=== PATIENT | male | born 1955 | race Two or more races ===

== ENCOUNTER 2018-12-25 22:36 | Inpatient (IN) | payer OTHER ==
[~2018-12-25] VITALS: Ht 167.6 cm; Wt 86.2 kg
[2018-12-26 03:00] VITALS: BP_SYST 129; BP_DIAS 65; BP_DIAS 69
--- NOTE | 2018-12-26 03:00 | NUR ---
ETL BI DEVELOPERUNDERGRADUATE INTERN NOTES RECEIVED DIRECT ADMIT FROM [facility],THIS 63 Y.O. MALE,,ALERT,ORIENTED X4,WITH CHIEF COMPLAINTS OF INCREASED BODY TEMPERATURE AND SLIGHT SHORTNESS OF BREATH PRIOR TO ADMISSION.WITH SALINE LOCK FROM [place] ON LEFT AC #20.NO SKIN ISSUES.AMBULATORY.BREATH SOUNDS CLEAR ON BOTH LOWER LUNG FIELD.NO FEVER UPON ARRIVAL ON THE UNIT,WITH ORAL TEMPERATURE OF 98.5.WITH HISTORY OF DM,HTN,GALLSTONE AND PROSTATE PROBLEM.DENIES PAIN AT THE MOMENT.PLACE COMFORTABLY ON BED,CALL LIGHT IN REACH,NEEDS ANTICIPATED.
--- NOTE | 2018-12-26 03:30 | NUR ---
PLANT OPERATOR HELPER NOTES MRSA SWAB DONE,SENT TO LAB
[2018-12-26 04:00] VITALS: BP 125/69
[2018-12-26] MEDS ORDERED: GABA-532 PO (04:10)
[2018-12-26] MEDS ORDERED: METF-442 PO (04:10)
[2018-12-26] MEDS ORDERED: LISI10TA5 PO (04:10)
[2018-12-26] MEDS ORDERED: DOCU-141 PO (04:10)
[2018-12-26] MEDS ORDERED: ATOR40TA PO (04:10)
[2018-12-26] MEDS: IV 1/2NS 1000 ML 1,000 ML IV PRN (05:18)
[2018-12-26] MEDS ORDERED: ZOLPIDEM TARTRATE 5 MG TABLET PO PRN (05:30)
[2018-12-26] MEDS ORDERED: Z GUARD REMEDY 2 OZ OINT TP PRN (05:30)
[2018-12-26] MEDS ORDERED: ONDANSETRON HCL/PF 4 MG/2 ML VIAL IVP PRN (05:30)
[2018-12-26] MEDS ORDERED: MAG HYDROX/AL HYDROX/SIMETH 30 ML UDC PO PRN (05:30)
[2018-12-26] MEDS ORDERED: HYDROCODONE/APAP 5/325MG 1 EACH TABLET PO PRN (05:30)
[2018-12-26] MEDS ORDERED: MAGNESIUM HYDROXIDE 30 ML UDC PO PRN (05:30)
[2018-12-26] MEDS ORDERED: LEVOFLOXACIN 500 MG /D5W 100ML 100 ML IV ONE (06:00)
[2018-12-26] MEDS ORDERED: LEVOFLOXACIN 500 MG /D5W 100ML 500 MG in PREMIX 1 EA IV ONE (06:00)
--- NOTE | 2018-12-26 06:38 | NUR ---
ICT PROGRAMMER NOTES SRSR-73 ON TELE MONITOR.DENIES CHEST PAIN,NO SOB.AFEBRILE 98.5.STARTED ON LEVAQUIN 500MG IV ORDERED.BLOOD SUGAR CHECK 152,NO ORDER FOR SLIDING SCALE.WILL ENDORSE TO DAY NURSE FOR ALEJANDRO.
[2018-12-26 06:57] LABS: BASOPHILS % (AUTO) 0.3 % (0.0-2.0); EOSINOPHILS % (AUTO) 0.1 % (0.0-6.0); HEMATOCRIT 39 % (39-51); HEMOGLOBIN 12.9 g/dL (13.5-17.5); LYMPHOCYTES # (AUTO) 2.1 /CMM (0.8-4.8); MEAN CORPUSCULAR HGB CONC 34 g/dl (31.0-36.0); MEAN CORPUSCULAR VOLUME 94 fL (80-96); MONOCYTES # (AUTO) 2.3 /CMM (0.1-1.30); MONOCYTES % (AUTO) 14.7 % (2.0-12.0); NEUTROPHILS # (AUTO) 10.8 /CMM (1.8-8.9); NEUTROPHILS % (AUTO) 70.9 % (43.0-81.0); PLATELET COUNT (AUTO) 194 /CMM (150-450); RED BLOOD CELL COUNT(AUTO) 4.11 MIL/uL (4.5-6.0); WHITE BLOOD COUNT (AUTO) 15.3 K/uL (4.3-11.0)
[2018-12-26 07:09] LABS: BILIRUBIN,TOTAL 1.3 mg/dL (0.2-1.0); CALCIUM, SERUM 8.2 mg/dL (8.5-10.1); CREATININE 0.9 mg/dL (0.6-1.3); POTASSIUM 3.8 mmol/L (3.5-5.1); TOTAL PROTEIN, SERUM 6.9 g/dL (6.4-8.2)
--- NOTE | 2018-12-26 07:10 | NUR ---
JOURNEYMAN MILLWRIGHT NOTES PATIENT IN BED ALERT ORIENTED X 3. NO ACUTE DISTRESS NOTED. BREATHING UNLABORED. NO SOB NOTED. IV ACCESS PATENT AND INTACT, NO REDNESS OR SWELLING NOTED. SAFETY MEASURES IN PLACE. WILL CONTINUE TO MONITOR ACCORDINGLY.
[2018-12-26 08:00] VITALS: BP 172/85
[2018-12-26] MEDS ORDERED: ACET-868 PO (08:50)
--- NOTE | 2018-12-26 09:30 | NUR ---
TITLE ATTORNEY NOTES FOLLOWED UP WITH DR MICK DUKE REGARDING MEDICATION RECONCILIATION NEEDS TO BE DONE. SAID OK HE WILL DO IT.
[2018-12-26] MEDS: ACETAMINOPHEN 325 MG TABLET PO PRN ×2 (10:34→16:50)
[2018-12-26 16:00] VITALS: BP 173/87
[2018-12-26] MEDS ORDERED: VANCOMYCIN 1 GM in IV D5W 250 ML IV ONE (17:00)
[2018-12-26] MEDS: METFORMIN 500 MG TABLET PO SCH (17:00)
--- NOTE | 2018-12-26 17:00 | NUR ---
MS RN NOTES MD AWARE OF ELEVATED TEMPERATURE, TYLENOL GIVEN, COOLING MEASURES DONE. WILL CONTINUE TO MONITOR PATIENT.
[2018-12-26] MEDS ORDERED: FEE PK DOSING 1 MIN EA MC ONE (17:01)
--- NOTE | 2018-12-26 18:35 | NUR ---
PATIENT NOTED TO HAVE ELEVATED BLOOD PRESSURE, DR MICK DUKE MADE AWARE WITH ORDERS FOR HYDRALAZINE 25 MG PO Q4H PRN FOR SBP>165, NOTED AND CARRIED OUT.
[2018-12-26] MEDS ORDERED: hydrALAZINE HCL 25 MG TABLET PO PRN (19:00)
--- NOTE | 2018-12-26 19:00 | NUR ---
MS RN NOTES PATIENT IN BED ALERT ORIENTED X 3. NO ACUTE DISTRESS NOTED. BREATHING UNLABORED. NO SOB NOTED. IV ACCESS PATENT AND INTACT, NO REDNESS OR SWELLING NOTED. DUE MEDICATIONS GIVEN , NO ASE NOTED. NEEDS ATTENDED AND ANTICIPATED. SAFETY MEASURES IN PLACE. VANCOMYCIN IV SCHEDULED FOR 1800 NOT AVAILABLE ON THE FLOOR YET, CALL PHARMACIST RADHA TO FOLLOW UP SAID IT WILL BE DELIVERED SOON POSSIBLE. ENDORSED TO NIGHT NURSE FOR CONTINUITY OF CARE AND ADMINISTRATION OF VANCOMYCIN IV.
--- NOTE | 2018-12-26 19:40 | NUR ---
MS RN NOTE: PATIENT RESTING IN BED, NO ACUTE DISTRESS NOTED. BREATHING EVEN AND UNLABORED, NO SOB NOTED. IV TO LAC IN PLACE, INFUSING 1/2NS AT 75ML/HR. PATIENT BLOOD PRESSURE STABLE AT 113/58 AFTER GIVEN HYDRALAZINE ORAL 25MG AROUND 184. BED LOCKED AND IN LOWEST POSITION, CALL LIGHT IN REACH. WILL CONTINUE TO MONITOR.
[2018-12-26 19:59] LABS: APPEARANCE,URINE CLEAR (CLEAR); BILIRUBIN,URINE NEGATIVE (NEGATIVE); BLOOD, URINE 1+ Ery/uL (NEGATIVE); COLOR,URINE DARK YELLO (YELLOW); KETONES,URINE 2+ (NEGATIVE); LEUKOCYTE ESTERASE ,URINE NEGATIVE (NEGATIVE); NITRITE, URINE NEGATIVE (NEGATIVE); PH,URINE 7.5 (5.0-8.0); PROTEIN,URINE 2+ mg/dl (NEGATIVE); UGLUCOSE NEGATIVE (NEGATIVE)
[2018-12-26 20:00] VITALS: BP 113/58
[2018-12-26] MEDS: VANCOMYCIN 1.25 GM in IV D5W 500 ML IV SCH (20:17)
[2018-12-26 20:19] LABS: BACTERIA,URINE None seen /HPF (None Seen); MUCUS,URINE Rare /LPF (None Seen); SQUAMOUS EPITHELIAL CELL,UR Few /HPF (None Seen); WBC,URINE 0-2 /HPF (0-3)
--- NOTE | 2018-12-26 20:35 | NUR ---
Met with patient and family at bedside. He speaks Kiswahili only, he is alert and pleasant. He lives at home with his , daughter and grandkids in [place]. States he is ambulatory and independent with adl's. Denies use of DME and no homehealth. Has big family who are supportive. Plan to dc home, family will provide ride when discharge. Addendum: 12/26/18 at 2035 by MACKENZIE GAMBLE RN Amended: Links added.
[2018-12-26] MEDS ORDERED: GABAPENTIN 100 MG CAPSULE PO SCH (22:00)
--- NOTE | 2018-12-26 23:00 | NUR ---
MS RN NOTE: PATIENT IV LEAKING TO LAC. NEW IV STARTED TO RFA #22 WITH GOOD BLOOD RETURN. IV TO LAC REMOVED, COVERED WITH GAUZE, PRESSURE APPLIED AND SECURED WITH TAPE. WILL CONTINUE TO MONITOR.
[2018-12-27] MEDS: IV 1/2NS 1000 ML 1,000 ML IV PRN (01:37)
[2018-12-27] MEDS: ACETAMINOPHEN 325 MG TABLET PO PRN (05:33)
[2018-12-27] MEDS ORDERED: LEVOFLOXACIN 750 MG /D5W 150ML 750 MG in PREMIX 1 EA IV SCH (06:00)
[2018-12-27] MEDS ORDERED: LEVOFLOXACIN 500 MG /D5W 100ML 500 MG in PREMIX 1 EA IV SCH (06:00)
--- NOTE | 2018-12-27 06:05 | NUR ---
MS RN NOTE: PATIENT RESTING IN BED, NO ACUTE DISTRESS NOTED. BREATHING EVEN AND UNLABORED, NO SOB NOTED. IV TO RFA IN PLACE, INFUSING 1/2NS AT 75ML/HR. BED LOCKED AND IN LOWEST POSITION, CALL LIGHT IN REACH. WILL ENDORSE TO DAY NURSE TO CONTINUE WITH PLAN OF CARE.
--- NOTE | 2018-12-27 07:05 | NUR ---
MS RN NOTES PATIENT IN BED ALERT ORIENTED X 3. NO ACUTE DISTRESS NOTED. BREATHING UNLABORED. NO SOB NOTED. IV ACCESS PATENT AND INTACT, NO REDNESS OR SWELLING NOTED. SAFETY MEASURES IN PLACE. WILL CONTINUE TO MONITOR ACCORDINGLY.
[2018-12-27 07:14] LABS: BASOPHILS % (AUTO) 0.3 % (0.0-2.0); EOSINOPHILS % (AUTO) 0.2 % (0.0-6.0); HEMATOCRIT 40 % (39-51); HEMOGLOBIN 13.4 g/dL (13.5-17.5); LYMPHOCYTES # (AUTO) 1.6 /CMM (0.8-4.8); LYMPHOCYTES % (AUTO) 13.5 % (20.0-44.0); MEAN CORPUSCULAR HGB CONC 34 g/dl (31.0-36.0); MEAN CORPUSCULAR VOLUME 93 fL (80-96); MONOCYTES # (AUTO) 1.5 /CMM (0.1-1.30); MONOCYTES % (AUTO) 12.4 % (2.0-12.0); NEUTROPHILS # (AUTO) 8.6 /CMM (1.8-8.9); NEUTROPHILS % (AUTO) 73.6 % (43.0-81.0); PLATELET COUNT (AUTO) 183 /CMM (150-450); RED BLOOD CELL COUNT(AUTO) 4.29 MIL/uL (4.5-6.0); WHITE BLOOD COUNT (AUTO) 11.7 K/uL (4.3-11.0)
[2018-12-27 07:27] LABS: CALCIUM, SERUM 8.1 mg/dL (8.5-10.1); CREATININE 0.8 mg/dL (0.6-1.3); MAGNESIUM 1.9 mg/dL (1.8-2.4); PHOSPHORUS 2.6 mg/dL (2.5-4.9); POTASSIUM 3.6 mmol/L (3.5-5.1)
[2018-12-27] MEDS: VANCOMYCIN 1.25 GM in IV D5W 500 ML IV SCH (07:31)
[2018-12-27 07:42] LABS: THYROID STIMULATING HORMONE 1.051 uIU/mL (0.358-3.74)
[2018-12-27 08:00] VITALS: BP 127/77
[2018-12-27] MEDS: METFORMIN 500 MG TABLET PO SCH ×2 (08:16→17:00)
[2018-12-27] MEDS ORDERED: LISINOPRIL (10MG) 10 MG TABLET PO SCH (09:00)
[2018-12-27] MEDS ORDERED: ATORVASTATIN 40 MG TABLET PO SCH (09:00)
[2018-12-27] MEDS ORDERED: LEVO500T75 PO (14:35)
[2018-12-27 16:00] VITALS: BP 127/71
[2018-12-27] MEDS ORDERED: LACTOBACILLUS RHAMNOSUS GG 1 EACH CAP.SPRINK PO SCH (17:00)
--- NOTE | 2018-12-27 17:30 | NUR ---
MS FREIGHT RECEIVER NOTES PATIENT DISCHARGE HOME WITH DAUGHTER NAYLA WITH STABLE VITAL SIGNS. NO ACUTE DISTRESS NOTED. BREATHING UNLABORED. NO SOB NOTED. IV ACCESS REMOVED, NO REDNESS, NO SWELLING NOTED, NO BLEEDING NOTED. DISCHARGE INSTRUCTIONS INCLUDING FOLLOW UP WITH PRIMARY DOCTOR AND NEW PRESCRIPTION GIVEN TO THE PATIENT AND DAUGHTER NAYLA AT BEDSIDE, VERBALIZED UNDERSTANDING . ALL BELONGINGS ACCOUNTED FOR. NEEDS ATTENDED AND ANTICIPATED. ASSISTED TO THE LOBBY, PICKED UP VIA PRIVATE CAR IN STABLE CONDITION.
== END 2018-12-27 18:00 | disposition home or self-care (01) | DRG 723 ==
LOC: TELE 12-26 02:53 → MED 12-26 09:23
PROVIDERS: ADMIT Nurse Practitioner Acute Care; ATTEND Nurse Practitioner Acute Care
DX: B34.9 Viral infection, unspecified (principal); E11.9 Type 2 diabetes mellitus without complications; I10 Essential (primary) hypertension; N40.0 Benign prostatic hyperplasia without lower urinary tract symptoms; Z88.0 Allergy status to penicillin; K80.20 Calculus of gallbladder without cholecystitis without obstruction
CPT/HCPCS: 36415; 71045-TC; 76705-TC; 80048-TC; 80053-TC; 80061-TC; 81000-TC; 82962-TC; 83735-TC; 84100-TC; 84443-TC; 85025-TC; 87040-TC; 87081-TC; 87400; A4216; G0378; J1956; J3370; J3490; J7060

== ENCOUNTER 2018-12-31 17:12 | Inpatient (IN) | payer OTHER ==
[~2018-12-31] VITALS: Ht 165.1 cm; Wt 87.1 kg
[~2018-12-31 17:12] MED LIST: ACET-868 PO; ATOR40TA PO; DOCU-141 PO; GABA-532 PO; LEVO500T75 PO; LISI10TA5 PO; METF-442 PO
--- NOTE | 2018-12-31 17:20 | NUR ---
BIB family c/o RUQ abdominal pain radiates to r shoulder since yesterday, was seen at [facility] and Dx with Cholelithiasis, confirmed by US. Patient a/ox4, bolivian speaking, Breathing even and unlabored, no sob noted. Patient placed on the monitor.
[2018-12-31 17:51] LABS: BASOPHILS # (AUTO) 0.1 /CMM (0.0-0.2); BASOPHILS % (AUTO) 0.5 % (0.0-2.0); EOSINOPHILS % (AUTO) 1.5 % (0.0-6.0); HEMATOCRIT 41 % (39-51); HEMOGLOBIN 13.8 g/dL (13.5-17.5); LYMPHOCYTES # (AUTO) 1.7 /CMM (0.8-4.8); LYMPHOCYTES % (AUTO) 10.4 % (20.0-44.0); MEAN CORPUSCULAR HGB CONC 33 g/dl (31.0-36.0); MEAN CORPUSCULAR VOLUME 93 fL (80-96); MONOCYTES # (AUTO) 1.9 /CMM (0.1-1.30); MONOCYTES % (AUTO) 11.8 % (2.0-12.0); NEUTROPHILS # (AUTO) 12.1 /CMM (1.8-8.9); NEUTROPHILS % (AUTO) 75.8 % (43.0-81.0); PLATELET COUNT (AUTO) 333 /CMM (150-450); RED BLOOD CELL COUNT(AUTO) 4.46 MIL/uL (4.5-6.0)
[2018-12-31 17:57] LABS: CALCIUM, SERUM 9.6 mg/dL (8.5-10.1); CREATININE 0.8 mg/dL (0.6-1.3); POTASSIUM 3.8 mmol/L (3.5-5.1)
[2018-12-31 18:03] LABS: ALBUMIN 3.4 g/dL (3.4-5.0); BILIRUBIN,DIRECT 0.2 mg/dL (0.0-0.2); BILIRUBIN,TOTAL 0.9 mg/dL (0.2-1.0); TOTAL PROTEIN, SERUM 8.4 g/dL (6.4-8.2)
[2018-12-31] MEDS ORDERED: ONDANSETRON HCL/PF 4 MG/2 ML VIAL ONE (18:56)
[2018-12-31] MEDS ORDERED: MORPHINE SULFATE INJ 2 MG/ML DISP.SYRIN ONE (18:56)
[2018-12-31] MEDS ORDERED: METRONIDAZOLE 500MG/ NS 100ML 100 ML IV ONE (19:00)
[2018-12-31] MEDS ORDERED: IV NS 0.9% 1,000 ML BAG IV ONE ×2 (19:00→20:30)
[2018-12-31] MEDS ORDERED: LEVOFLOXACIN 750 MG /D5W 150ML 150 ML IV ONE (19:00)
[2018-12-31] MEDS ORDERED: MORPHINE SULFATE INJ 2 MG/ML DISP.SYRIN IV ONE (19:00)
[2018-12-31] MEDS ORDERED: ONDANSETRON HCL/PF 4 MG/2 ML VIAL IVP ONE (19:00)
--- NOTE | 2018-12-31 19:05 | NUR ---
Patient c/o abdominal pain, morphine and zofran given. NS started, and tolerating well.
[2018-12-31] MEDS ORDERED: TAMS-12 PO (19:15)
--- NOTE | 2018-12-31 19:46 | NUR ---
CALLED NURSING SUP FOR TELE BED
--- NOTE | 2018-12-31 19:51 | NUR ---
Endorsed to ED for liz.
[2018-12-31] MEDS ORDERED: MAGNESIUM HYDROXIDE 30 ML UDC PO PRN (20:00)
[2018-12-31] MEDS ORDERED: ACETAMINOPHEN 325 MG TABLET PO PRN (20:00)
[2018-12-31] MEDS ORDERED: ZOLPIDEM TARTRATE 5 MG TABLET PO PRN (20:00)
[2018-12-31] MEDS ORDERED: Z GUARD REMEDY 2 OZ OINT TP PRN (20:00)
--- NOTE | 2018-12-31 20:11 | NUR ---
325-1 [facility]
--- NOTE | 2018-12-31 20:15 | NUR ---
REPORT CALLED TO M/S YAMEL EDWARDS.
[2018-12-31 20:53] VITALS: BP 121/67
--- NOTE | 2018-12-31 20:53 | NUR ---
admission note patient arrived to unit from er. admitted to [facility] for cholecystitis. new orders from admitting dr. maldonado already entered. patient in no apparent distress. ambulatory reports pain in abd rated 2/10 to ruq. poc reviewed with kelvin toledo assisting with icelandic interpretation. patient denied need to have professional science manager. oriented to room. bed down locked sr x2 will cont to monitor.
[2018-12-31 20:55] VITALS: BP 121/67
[2018-12-31] MEDS: IV NS 0.9% 1,000 ML IV SCH (22:27)
[2018-12-31] MEDS: GABAPENTIN 100 MG CAPSULE PO SCH (22:45)
--- NOTE | 2018-12-31 23:26 | NUR ---
ns missed dose ns bolus missed dose because ordered in er by er doctor. new admission orders from [facility] already entered and will be followed.
[2019-01-01] MEDS ORDERED: METRONIDAZOLE 500MG/ NS 100ML 100 ML IV ONE ×2 (00:15→05:33)
--- NOTE | 2019-01-01 00:15 | NUR ---
duplicate flagyl missed dose duplicate order for flagyl missed dose. original order maked as administered.
[2019-01-01] MEDS: METRONIDAZOLE 500MG/ NS 100ML 500 MG in PREMIX 1 EA IV SCH ×5 (00:50→23:49)
--- NOTE | 2019-01-01 05:39 | NUR ---
duplicate flagyl missed dose duplicate order for flagyl missed dose. original order to be administered.
[2019-01-01] MEDS: HYDROCODONE/APAP 5/325MG 1 EACH TABLET PO PRN ×3 (06:39→16:41)
[2019-01-01] MEDS: BLOOD SUGAR DIAGNOSTIC 1 EACH STRIP IN SCH ×4 (06:40→17:13)
--- NOTE | 2019-01-01 06:50 | NUR ---
pain, hida scan scheduled. dr maldonado called patient scheduled for hida scan and morphine is contraindicated prior to test. ordered extra norco to be give for breakthough pain if the first norco does not resolve pain satisfactory.
--- NOTE | 2019-01-01 07:28 | NUR ---
norco one time patient requesting norco one time dose states pain is 6/10 to abd. administered as ordered
[2019-01-01] MEDS ORDERED: HYDROCODONE/APAP 5/325MG 1 EACH TABLET PO ONE (07:30)
[2019-01-01 07:45] LABS: BASOPHILS % (AUTO) 0.2 % (0.0-2.0); EOSINOPHILS % (AUTO) 0.4 % (0.0-6.0); HEMATOCRIT 39 % (39-51); HEMOGLOBIN 13.1 g/dL (13.5-17.5); LYMPHOCYTES # (AUTO) 1.5 /CMM (0.8-4.8); MEAN CORPUSCULAR HGB CONC 34 g/dl (31.0-36.0); MEAN CORPUSCULAR VOLUME 93 fL (80-96); MONOCYTES # (AUTO) 1.7 /CMM (0.1-1.30); MONOCYTES % (AUTO) 10.2 % (2.0-12.0); NEUTROPHILS # (AUTO) 13.6 /CMM (1.8-8.9); NEUTROPHILS % (AUTO) 80.2 % (43.0-81.0); PLATELET COUNT (AUTO) 298 /CMM (150-450); RED BLOOD CELL COUNT(AUTO) 4.21 MIL/uL (4.5-6.0)
[2019-01-01] MEDS: IV NS 0.9% 1,000 ML IV SCH ×2 (07:53→16:16)
--- NOTE | 2019-01-01 07:54 | NUR ---
RN MS OPENING NOTES Patient received on room air, no sob noted. patient states no pain at this time, patient is scheduled for a NM hepato biliary scan today. No questions or concerns coming from the patient toward his procedure. Consent signed and awaiting for transport. Bed at the lowest setting, call light within reach.
[2019-01-01 07:58] LABS: CALCIUM, SERUM 8.8 mg/dL (8.5-10.1); CREATININE 0.7 mg/dL (0.6-1.3); MAGNESIUM 1.8 mg/dL (1.8-2.4); PHOSPHORUS 2.2 mg/dL (2.5-4.9); POTASSIUM 4.2 mmol/L (3.5-5.1)
[2019-01-01 08:00] VITALS: BP 130/80
[2019-01-01] MEDS: LISINOPRIL (5MG) 5 MG TABLET PO SCH (08:50)
[2019-01-01] MEDS: METFORMIN 500 MG TABLET PO SCH ×2 (08:50→16:41)
[2019-01-01] MEDS: DOCUSATE SODIUM 100 MG CAPSULE PO SCH ×2 (08:50→16:41)
[2019-01-01] MEDS: NICOTINE PATCH (7MG) 7 MG PATCH.TD24 TD SCH (08:50)
[2019-01-01] MEDS: ATORVASTATIN 40 MG TABLET PO SCH (08:50)
[2019-01-01] MEDS ORDERED: PNEUMOCOCCAL 23-VAL P-SAC VAC 0.5 ML VIAL SQ ONE (10:00)
[2019-01-01] MEDS ORDERED: K PHOS NEUTRAL 250 MG TABLET PO ONE (15:00)
[2019-01-01 16:00] VITALS: BP 143/81
[2019-01-01] MEDS ORDERED: DEXTROSE 50%-WATER 50 ML DISP.SYRIN IV PRN (16:30)
[2019-01-01] MEDS: TAMSULOSIN 0.4 MG CAP.SR.24H PO SCH (17:20)
[2019-01-01] MEDS: MORPHINE SULFATE INJ 2 MG/ML DISP.SYRIN IV PRN ×2 (18:04→23:47)
--- NOTE | 2019-01-01 18:27 | NUR ---
Readmitted less than 7days c/o abd pain. He speaks Upper Sorbian only, he is alert and pleasant. He lives at home with his , daughter and grandkids in [place]. States he is ambulatory and independent with adl's. Denies use of DME and no homehealth. Has big family who are supportive. Plan to dc home, family will provide ride when discharge. Addendum: 01/01/19 at 1828 by MACKENZIE GAMBLE RN Amended: Links added.
--- NOTE | 2019-01-01 18:35 | NUR ---
RN MS CLOSING NOTES Patient remains on room air, no sob noted. A/O x4 Grenadian speaking only. Right AC 20 gauge, NS@100mL/hour. patient denies pain at this time. Patient lying down comfortably on bed, bed at the lowest setting, call light within reach. Will give report to NOC RN bedside.
--- NOTE | 2019-01-01 19:05 | NUR ---
RN MS OPENING NOTES RECEIVED PATIENT IN BED AWAKE ALERT AND ORIENTED X4, TELUGU SPEAKING, RESPIRATIONS EVEN AND UNLABORED WITH EQUAL RISE AND FALL OF CHEST, STATES HE HAS "LITTLE PAIN AT THIS TIME 10/05", HOWEVER DOES NOT WANT PAIN MEDICATION AT THIS TIME, MADE AWARE IF UNBEARABLE PAIN MEDICATION IF AVAILABLE, VERBALIZES HE UNDERSTANDS, PER AM SHIFT REPORT DR. LANTIGUA AT BEDSIDE AT CHANGE OF SHIFT WHOM SCHEDULED PT FOR PROCEDURE LAPRASCOPIC CHOLECYSTECTOMY AND TO OBTAIN CONSENTS, WILL FOLLOW UP WITH CONSENTS, PATIENT MADE AWARE OF MD'S PLAN OF CARE AND VERBALIZES HE UNDERSTANDS. URINAL AT BEDSIDE AND WITHIN REACH, NOTED URINE NATALIIA IN COLOR ,NO SEDIMENTS, LEFT AC #22 G INTACT AND PATENT, NO REDNESS, NO INFILTRATION PRESENT, IVF RUNNING ORDERED, NPO STATUS PATIENT AWARE, ORIENTED TO STAFF AND CALL LIGHT AND KEPT WITHIN REACH, SAFETY PRECAUTIONS IN PLACE, LOW BED AND LOCKED, ALL NEEDS ATTENDED WILL CONTINUE TO MONITOR THROUGHOUT SHIFT. Addendum: 01/02/19 at 0517 by DAVE CARNES RN clarification iv site left ac #18
[2019-01-01 20:00] VITALS: BP 128/73
--- NOTE | 2019-01-01 20:00 | NUR ---
YAMEL MS NOTES CONSENTS OBTAINED FOR PROCEDURE,PROVIDED IN COMORAN AND EXPLAINED IN COMORAN, RECEIVED CALL FROM MARKO BALLESTEROS, PATIENT SCHEDULED FOR 7AM 01/02/19. PATIENT MADE AWARE.
[2019-01-01] MEDS: LEVOFLOXACIN 500 MG /D5W 100ML 500 MG in PREMIX 1 EA IV SCH (20:25)
[2019-01-01] MEDS: GABAPENTIN 100 MG CAPSULE PO SCH (21:20)
--- NOTE | 2019-01-01 23:47 | NUR ---
RN MS NOTES PT COMPLAINT OF PAIN 9/10 TO RIGHT SIDE ABD, ACHING REQUESTING FOR PAIN MEDICATION MORPHINE OFFERED AGREED. PRN MORPHINE GIVEN ORDERED, VS WNL, WILL CONTINUE TO MONITOR FOR EFFECTIVENESS.
[2019-01-02] VITALS (9 sets, daily range): BP systolic 106–127; BP diastolic 64–88
[2019-01-02] MEDS: BLOOD SUGAR DIAGNOSTIC 1 EACH STRIP IN SCH ×5 (00:02→23:30)
[2019-01-02] MEDS: INSULIN REGULAR, HUMAN 100 UNIT/ML 3 ML VIAL SQ PRN ×4 (00:02→17:25)
[2019-01-02] MEDS: IV NS 0.9% 1,000 ML IV SCH ×4 (02:13→21:35)
[2019-01-02] MEDS: METRONIDAZOLE 500MG/ NS 100ML 500 MG in PREMIX 1 EA IV SCH ×3 (05:06→21:58)
[2019-01-02] MEDS: MORPHINE SULFATE INJ 2 MG/ML DISP.SYRIN IV PRN (05:13)
--- NOTE | 2019-01-02 05:13 | NUR ---
RN MS NOTES PATIENT COMPLAINT OF PAIN TO RIGHT SIDE ABD ,9/10 NOTED WITH FACIAL GRIMACING AND MOANS, PAIN MEDICATION OFFERED, PT AGREED VS WNL 127/77,119,19,98.0,97%RA. PRN MORPHINE GIVEN ORDERED WILL CONTINUE TO MONITOR FOR EFFECTIVENESS. ACCUCHECK 129 NPO STATUS FOR SURGERY. NO INSULIN GIVEN
[2019-01-02] MEDS ORDERED: LIDOCAINE HCL/PF 1% 30 ML SDV ONE (06:32)
[2019-01-02] MEDS ORDERED: BUPIVACAINE MPF 0.5% W/EPI INJ 30 ML VIAL ONE (06:32)
[2019-01-02] MEDS ORDERED: ANESTHESIA TRAY IN PYXIS 1 EA TRAY MC ONE (06:32)
--- NOTE | 2019-01-02 06:45 | NUR ---
RN MS CLOSING NOTES PATIENT IN BED AWAKE ALERT AND ORIENTED X4, PAKISTANI SPEAKING, RESPIRATIONS EVEN AND UNLABORED WITH EQUAL RISE AND FALL OF CHEST, PT LEFT THE UNIT IN STABLE CONDITION FOR PROCEDURE LAPRASCOPIC CHOLECYSTECTOMY CONSENTS IN CHART CHECKLIST DONE, URINAL AT BEDSIDE AND WITHIN REACH, NOTED URINE NATALIIA IN COLOR ,NO SEDIMENTS, LEFT AC #18 G INTACT AND PATENT, NO REDNESS, NO INFILTRATION PRESENT, IVF RUNNING ORDERED, NPO STATUS PATIENT AWARE, CALL LIGHT KEPT WITHIN REACH THROUGHOUT SHIFT, SAFETY PRECAUTIONS IN PLACE, LOW BED AND LOCKED, ALL NEEDS WERE ATTENDED WILL ENDORSE TO NEXT SHIFT, CALLED AND MADE SURGERY DEPARTMENT STAFF [id number] GAVE MORPHINE PRN AT 0512 FOR PAIN, AND WRITTEN ON CHECKLIST FOR PAIN OF 04/07. PER STAFF WILL INFORM NURSE OR STAFF.
[2019-01-02] MEDS ORDERED: FENTANYL PF 100MCG/2ML AMPUL ONE (06:48)
[2019-01-02] MEDS ORDERED: MIDAZOLAM HCL 2 MG/2ML VIAL ONE (06:48)
--- NOTE | 2019-01-02 09:20 | NUR ---
m/s senior c web developer: notes received pt from recovery with dx: s/p lap catalino with dami drain on right abdomen with band-aid to abdomen incision. pt appears to be drowsy, arousable. vss, afebrile. family at bedside. will continue to monitor. Addendum: 01/02/19 at 1914 by BREEZY HERRMANNN correction on above procedure: s/p laparoscopy with a conversion to open exploratory and cholecystectomy with dami drain in place.
--- NOTE | 2019-01-02 09:30 | NUR ---
m/s leather piece inspector: notes iv fluids increase to 150ml/hr as ordered. will continue to monitor.
[2019-01-02] MEDS ORDERED: ACETAMINOPHEN 325 MG TABLET PO ONE (11:00)
[2019-01-02] MEDS ORDERED: GABAPENTIN 300 MG CAPSULE PO ONE (11:00)
[2019-01-02] MEDS ORDERED: IBUPROFEN 400 MG TABLET PO ONE (11:00)
[2019-01-02] MEDS: LISINOPRIL (5MG) 5 MG TABLET PO SCH (11:00)
--- NOTE | 2019-01-02 11:00 | NUR ---
m/s sql report writer: notes pt resting comfortable. blood pressure 111/86 and wants to hold b/p med at this time. family remains at bedside. will continue to monitor.
[2019-01-02] MEDS: NICOTINE PATCH (7MG) 7 MG PATCH.TD24 TD SCH (11:01)
[2019-01-02] MEDS: DOCUSATE SODIUM 100 MG CAPSULE PO SCH ×2 (11:02→17:24)
[2019-01-02] MEDS: ATORVASTATIN 40 MG TABLET PO SCH (11:02)
[2019-01-02] MEDS: METFORMIN 500 MG TABLET PO SCH ×2 (11:02→17:24)
[2019-01-02 11:19] LABS: BASOPHILS % (AUTO) 0.1 % (0.0-2.0); EOSINOPHILS % (AUTO) 0.1 % (0.0-6.0); HEMATOCRIT 37 % (39-51); HEMOGLOBIN 12.3 g/dL (13.5-17.5); LYMPHOCYTES # (AUTO) 0.7 /CMM (0.8-4.8); LYMPHOCYTES % (AUTO) 3.6 % (20.0-44.0); MEAN CORPUSCULAR HGB CONC 34 g/dl (31.0-36.0); MEAN CORPUSCULAR VOLUME 93 fL (80-96); MONOCYTES # (AUTO) 0.9 /CMM (0.1-1.30); MONOCYTES % (AUTO) 4.3 % (2.0-12.0); NEUTROPHILS # (AUTO) 18.3 /CMM (1.8-8.9); NEUTROPHILS % (AUTO) 91.9 % (43.0-81.0); PLATELET COUNT (AUTO) 329 /CMM (150-450); RED BLOOD CELL COUNT(AUTO) 3.97 MIL/uL (4.5-6.0); WHITE BLOOD COUNT (AUTO) 19.9 K/uL (4.3-11.0)
[2019-01-02 11:40] LABS: ALBUMIN 2.5 g/dL (3.4-5.0); BILIRUBIN,TOTAL 1.5 mg/dL (0.2-1.0); CALCIUM, SERUM 8.1 mg/dL (8.5-10.1); CREATININE 0.9 mg/dL (0.6-1.3); MAGNESIUM 1.8 mg/dL (1.8-2.4); PHOSPHORUS 2.8 mg/dL (2.5-4.9); POTASSIUM 4.4 mmol/L (3.5-5.1)
--- NOTE | 2019-01-02 12:09 | NUR ---
m/s lift truck mechanic: notes iv fluids of ns at 150ml infusing well. family remains at bedside. will continue to monitor.
--- NOTE | 2019-01-02 14:00 | NUR ---
m/s inspector canned food reconditioning: notes pt resting comfortable. dami drained with 40ml of sanguineous output. pt tolerated clear liquid diet. family remains at bedside. will continue to monitor.
[2019-01-02] MEDS: MAG HYDROX/AL HYDROX/SIMETH 30 ML UDC PO PRN (15:47)
--- NOTE | 2019-01-02 16:00 | NUR ---
m/s ground worker: notes resting comfortable in bed. family remains at bedside. will continue to monitor.
[2019-01-02] MEDS ORDERED: FAMOTIDINE/PF INJ 20 MG/2 ML VIAL IV SCH (17:00)
[2019-01-02] MEDS: TAMSULOSIN 0.4 MG CAP.SR.24H PO SCH (17:24)
--- NOTE | 2019-01-02 18:10 | NUR ---
m/s family and consumer science professor: notes dami drained with 30ml of sanguineous output. pt tolerated clear liquid. no c/o n/v or any discomfort. family remains at bedside. iv fluids of normal saline at 150ml/hr still infusing well. instructed to call for assistance. will continue to monitor.
--- NOTE | 2019-01-02 19:10 | NUR ---
m/s isotope technologist: notes report given to juaquin (marly) for continuity of care.
--- NOTE | 2019-01-02 19:20 | NUR ---
MSRN FULLY AWAKE, FAMILY AT BEDSIDE. PATIENT STATES STILL FEELING ACIDIC ON HIS STOMACH. JUST HAD MAALOX FEW HOURS AGO, PER DAUGHTER DID NOT HELP. NO N/V. HAVE HOB ON [place]. ABD DRESSING D/I. NORY DRAIN EMPTY FOR NOW. PLACE CALL TO DR LANTIGUA.
--- NOTE | 2019-01-02 19:35 | NUR ---
MSRN SPOKE TO DR. LANTIGUA, ORDERS RECEIVED. CARRIED OUT.
--- NOTE | 2019-01-02 19:45 | NUR ---
MSRN EXPLAINED TO PATIENT AND FAMILY MEDICATION REGIMEN AND PLAN OF CARE, WELL UNDERSTOOD.
[2019-01-02] MEDS: LEVOFLOXACIN 500 MG /D5W 100ML 500 MG in PREMIX 1 EA IV SCH (20:26)
[2019-01-02] MEDS: FAMOTIDINE (20 MG) 20 MG TABLET PO SCH (21:41)
[2019-01-02] MEDS: GABAPENTIN 100 MG CAPSULE PO SCH (21:41)
--- NOTE | 2019-01-02 22:00 | NUR ---
MSRN 10 CC FROM NORY OBTAINED. DUE MEDS ADMINISTERED.
[2019-01-02] MEDS: HYDROMORPHONE 1 MG/1 ML DISP.SYRIN IV PRN (22:15)
--- NOTE | 2019-01-02 22:15 | NUR ---
MSRN VERBALIZES POST OP PAIN, DILAUDED 1MG IVP ADMINISTERED.
--- NOTE | 2019-01-03 | NUR ---
MSRN BS MONITORED, 167. COVERAGE NOT GIVEN DID NOT WANT SNACKS EARLIER. PRESENT IVF INFUSING WELL AT 150 CC/HR.
[2019-01-03] MEDS: SUCRALFATE 1 G TABLET PO SCH ×5 (00:06→23:58)
--- NOTE | 2019-01-03 02:28 | NUR ---
MSRN 15 CC OBTAINED FROM NORY MCKENZIE.
[2019-01-03] MEDS: METRONIDAZOLE 500MG/ NS 100ML 500 MG in PREMIX 1 EA IV SCH ×3 (05:57→20:27)
[2019-01-03] MEDS: IV NS 0.9% 1,000 ML IV SCH ×3 (05:58→20:48)
[2019-01-03] MEDS: HYDROCODONE/APAP 5/325MG 1 EACH TABLET PO PRN ×3 (06:44→21:53)
[2019-01-03] MEDS: BLOOD SUGAR DIAGNOSTIC 1 EACH STRIP IN SCH ×4 (06:44→21:49)
--- NOTE | 2019-01-03 06:45 | NUR ---
MSRN BS 128. NO COVERAGE. BRP VOIDED FREELY. IVF CONTINUED.
--- NOTE | 2019-01-03 07:20 | NUR ---
MS RN OPENING NOTES RECEIVED PT RESTING IN BED, AWAKE, A/O X4. LIBERIAN SPEAKING, ABLE TO UNDERSTAD A LITTLE TELUGU. TOLERATING RA, WITH NO ACUTE RESPIRATORY DISTRESS NOTED. PT DENIES PAIN. PT ALSO DENIES ANY CONCERNS AND QUESTIONS AT THIS MOMENT. IVF NS AT 150ML/HR TO LAC G18, INTACT AND FLUID INFUSING WELL. PT KEPT COMFORTABLE IN BED. CALL LIGHT AND FLUID WITHIN REACH. PT'S BED IN LOWEST, LOCKED POSITION WITH SR X3. WILL CONTINUE PLAN OF CARE.
[2019-01-03 08:45] VITALS: BP 118/71
[2019-01-03] MEDS: PANTOPRAZOLE 40 MG/PACK PACK PO SCH (09:01)
[2019-01-03] MEDS: DOCUSATE SODIUM 100 MG CAPSULE PO SCH ×2 (09:02→16:34)
[2019-01-03] MEDS: METFORMIN 500 MG TABLET PO SCH ×2 (09:03→16:35)
[2019-01-03] MEDS: ATORVASTATIN 40 MG TABLET PO SCH (09:03)
[2019-01-03] MEDS: NICOTINE PATCH (7MG) 7 MG PATCH.TD24 TD SCH (09:03)
[2019-01-03] MEDS: LISINOPRIL (5MG) 5 MG TABLET PO SCH (09:03)
[2019-01-03 09:42] LABS: BASOPHILS % (AUTO) 0.2 % (0.0-2.0); EOSINOPHILS % (AUTO) 0.3 % (0.0-6.0); HEMATOCRIT 36 % (39-51); HEMOGLOBIN 11.8 g/dL (13.5-17.5); LYMPHOCYTES # (AUTO) 2.2 /CMM (0.8-4.8); LYMPHOCYTES % (AUTO) 13.3 % (20.0-44.0); MEAN CORPUSCULAR HGB CONC 33 g/dl (31.0-36.0); MEAN CORPUSCULAR VOLUME 93 fL (80-96); MONOCYTES # (AUTO) 0.9 /CMM (0.1-1.30); MONOCYTES % (AUTO) 5.4 % (2.0-12.0); NEUTROPHILS # (AUTO) 13.4 /CMM (1.8-8.9); NEUTROPHILS % (AUTO) 80.8 % (43.0-81.0); PLATELET COUNT (AUTO) 376 /CMM (150-450); RED BLOOD CELL COUNT(AUTO) 3.83 MIL/uL (4.5-6.0); WHITE BLOOD COUNT (AUTO) 16.6 K/uL (4.3-11.0)
[2019-01-03 10:01] LABS: ALBUMIN 2.4 g/dL (3.4-5.0); BILIRUBIN,TOTAL 0.8 mg/dL (0.2-1.0); CALCIUM, SERUM 8.4 mg/dL (8.5-10.1); CREATININE 0.7 mg/dL (0.6-1.3); MAGNESIUM 2.1 mg/dL (1.8-2.4); POTASSIUM 4.3 mmol/L (3.5-5.1)
[2019-01-03] MEDS: HYDROMORPHONE 1 MG/1 ML DISP.SYRIN IV PRN ×2 (10:05→20:12)
--- NOTE | 2019-01-03 10:19 | NUR ---
RN NOTES PT'S NORY DRAIN EMPTIED, RESULTED 30ML. WITH YELLOWISH RED FLUID NOTED. WILL CONTINUE TO MONITOR.
[2019-01-03] MEDS: NEUTRA PHOS 1 POWD.PACKET PO SCH ×2 (11:13→16:34)
[2019-01-03] MEDS: INSULIN REGULAR, HUMAN 100 UNIT/ML 3 ML VIAL SQ PRN ×3 (11:53→22:01)
--- NOTE | 2019-01-03 14:30 | NUR ---
RN NOTES PT'S NORY DRAIN EMPTIED, RESULTED 25ML; WITH YELLOWISH RED FLUID NOTED. WILL CONTINUE TO MONITOR.
--- NOTE | 2019-01-03 14:30 | NUR ---
YAMEL NOTES PT'S NORY DRAIN EMPTIED, RESULTED 25ML. REMAINS WITH YELLOWISH-RED FLUID NOTED. WILL CONTINUE TO MONITOR. Addendum: 01/03/19 at 1823 by GARRETT JACOBS RN RESULTED 35ML. NOT 25ML. Addendum: 01/03/19 at 1825 by GARRETT JACOBS RN DUPLICATE DOCUMENTATION. 1430 = NORY EMPTIED, RESULTED 25ML.
[2019-01-03 16:00] VITALS: BP 68/137
[2019-01-03] MEDS: TAMSULOSIN 0.4 MG CAP.SR.24H PO SCH (17:02)
[2019-01-03] MEDS: MAG HYDROX/AL HYDROX/SIMETH 30 ML UDC PO PRN (18:13)
--- NOTE | 2019-01-03 18:19 | NUR ---
RN NOTES PT COMPLAINED OF FEELING BLOATED AND REQUESTED MEDICINE TO HELP PASS GAS. MAALOX GIVEN PRN ORDERED. PT STATED HE HAD A BOWEL MOVEMENT TODAT AROUND 1PM. AND PASSES GAS LITTLE BY LITTLE FROM TIME TO TIME. PT LSO STATED HE HAD MAALOX LAST NIGHT AND IT HELP HIM. FAMILY AT BEDSIDE WILL CONNTINUE TO MONITOR.
--- NOTE | 2019-01-03 18:20 | NUR ---
RN NOTES NORY DRAIN EMPTIED AT 1814, RESULTED 35ML; WITH SAME COLOR OF FLUID. WILL CONTINUE TO MONITOR.
--- NOTE | 2019-01-03 18:54 | NUR ---
MS RN CLOSING NOTES PT REMAINS RESTING IN BED, AWAKE, A/O X4. INDONESIAN SPEAKING, ABLE TO UNDERSTAD A LITTLE SLOVENIAN. TOLERATING RA, WITH NO ACUTE RESPIRATORY DISTRESS NOTED. PT STATED IN PAIN, JUST HAD [facility]CO PAIN MEDICINE PRN AND MAALOX, STATED EFFECTIVE A LITTLE BIT. IVF NS AT 150ML/HR TO LAC G18, INTACT AND FLUID INFUSING WELL. NORY DRAIN PRESENT TO RIGHT SIDE OF ABDOMEN, DRAINING WITH YELLOWISH RED FLUID. ALL NEEDS AND CARE PROVIDED. PT KEPT COMFORTABLE IN BED. CALL LIGHT AND FLUID WITHIN REACH. PT'S BED IN LOWEST, LOCKED POSITION WITH SR X3. WILL ENDORSE TO NIGHT NURSE FOR ALEJANDRO.
[2019-01-03 20:00] VITALS: BP 145/84
[2019-01-03] MEDS: ONDANSETRON HCL/PF 4 MG/2 ML VIAL IVP PRN (20:11)
[2019-01-03] MEDS ORDERED: LEVOFLOXACIN 500 MG /D5W 100ML 100 ML IV ONE (20:46)
[2019-01-03] MEDS: LEVOFLOXACIN 500 MG /D5W 100ML 500 MG in PREMIX 1 EA IV SCH (20:48)
[2019-01-03] MEDS: GABAPENTIN 100 MG CAPSULE PO SCH (21:50)
[2019-01-03] MEDS: FAMOTIDINE (20 MG) 20 MG TABLET PO SCH (21:50)
[2019-01-04] MEDS: HYDROMORPHONE 1 MG/1 ML DISP.SYRIN IV PRN ×5 (00:03→15:47)
[2019-01-04] MEDS: ONDANSETRON HCL/PF 4 MG/2 ML VIAL IVP PRN (04:53)
[2019-01-04] MEDS: METRONIDAZOLE 500MG/ NS 100ML 500 MG in PREMIX 1 EA IV SCH ×3 (05:40→21:46)
[2019-01-04] MEDS: IV NS 0.9% 1,000 ML IV SCH ×2 (05:40→11:23)
[2019-01-04] MEDS: SUCRALFATE 1 G TABLET PO SCH ×4 (05:41→23:04)
--- NOTE | 2019-01-04 06:00 | NUR ---
pt continue to have right abdominal pain s./p open catalino with dami, medicated with dilaudid, norco with good relief, vomited 250 cc total in 2 occasion despite zofran was given, stomach still bloated ,distended, encouraged ambulation today,. pt stated he pass little gas no bm overnight, offered prune juice if nausea subsided.total dami output 130cc serosang.will continue to monitor. vss,afebrile.
[2019-01-04 06:18] LABS: BASOPHILS % (AUTO) 0.2 % (0.0-2.0); EOSINOPHILS % (AUTO) 1.9 % (0.0-6.0); HEMATOCRIT 37 % (39-51); HEMOGLOBIN 12.3 g/dL (13.5-17.5); LYMPHOCYTES # (AUTO) 1.5 /CMM (0.8-4.8); MEAN CORPUSCULAR HGB CONC 34 g/dl (31.0-36.0); MEAN CORPUSCULAR VOLUME 93 fL (80-96); MONOCYTES # (AUTO) 0.8 /CMM (0.1-1.30); MONOCYTES % (AUTO) 7.3 % (2.0-12.0); NEUTROPHILS # (AUTO) 8.2 /CMM (1.8-8.9); NEUTROPHILS % (AUTO) 76.6 % (43.0-81.0); PLATELET COUNT (AUTO) 454 /CMM (150-450); RED BLOOD CELL COUNT(AUTO) 3.96 MIL/uL (4.5-6.0); WHITE BLOOD COUNT (AUTO) 10.7 K/uL (4.3-11.0)
[2019-01-04] MEDS: BLOOD SUGAR DIAGNOSTIC 1 EACH STRIP IN SCH ×3 (06:28→16:40)
[2019-01-04 06:41] LABS: ALBUMIN 2.4 g/dL (3.4-5.0); BILIRUBIN,TOTAL 0.6 mg/dL (0.2-1.0); CALCIUM, SERUM 8.2 mg/dL (8.5-10.1); CREATININE 0.6 mg/dL (0.6-1.3); MAGNESIUM 1.8 mg/dL (1.8-2.4); POTASSIUM 3.6 mmol/L (3.5-5.1); TOTAL PROTEIN, SERUM 6.7 g/dL (6.4-8.2)
[2019-01-04] MEDS: INSULIN REGULAR, HUMAN 100 UNIT/ML 3 ML VIAL SQ PRN ×2 (06:47→18:26)
[2019-01-04 08:00] VITALS: BP 146/95
--- NOTE | 2019-01-04 08:00 | NUR ---
RN NOTES PATIENT HAS A OPEN LAB CHOLECYSTECTOMY DRESSING INTACT, AND NORY DRAINAGE. RIGHT SIDE OF ABDOMEN DISTENDED, AND HARD TO TOUCH. PATIENT REFUSED EAT BREAKFAST BECAUSE NAUSEATED. PATIENT AMBULATORY USING BATHROOM, ENCOURAGED TO INCREASE FLUID INTACT.
[2019-01-04] MEDS: PANTOPRAZOLE 40 MG/PACK PACK PO SCH (08:05)
[2019-01-04] MEDS: METFORMIN 500 MG TABLET PO SCH ×2 (08:05→16:40)
[2019-01-04] MEDS: NICOTINE PATCH (7MG) 7 MG PATCH.TD24 TD SCH (08:06)
[2019-01-04] MEDS: NEUTRA PHOS 1 POWD.PACKET PO SCH (08:06)
[2019-01-04] MEDS: DOCUSATE SODIUM 100 MG CAPSULE PO SCH ×2 (08:06→16:40)
[2019-01-04] MEDS: ATORVASTATIN 40 MG TABLET PO SCH (08:06)
[2019-01-04] MEDS: LISINOPRIL (5MG) 5 MG TABLET PO SCH (08:07)
--- NOTE | 2019-01-04 08:07 | NUR ---
RN NOTES RECEIVED PATIENT STANDING NEXT TO THE BED. PATIENT WAS COMPLAINING OF PAIN RIGHT UPPER ABDOMEN, 05/07. ADMINISTERED DILAUDID 1 MG/ML IV PUSH PER PATIENT REQUEST, V/S TAKEN BP 146/95, P-89, ALSO ADMINISTERED SCHEDULED MEDICATION. EMPTIED NORY -35 ML. INFUSING NS AT 160 ML/HR ON RIGHT AC AREA INTACT, PATIENT PASSING GAS, ACTIVE BOWEL MOVEMENT IN FOUR QUADRANTS OF ABDOMEN. ENCOURAGED PATIENT TO AMBULATE.NEEDS ATTENDED AND ANTICIPATED. CALL LIGHT WITHIN TO REACH. CONTINUED MONITORING.
--- NOTE | 2019-01-04 09:19 | NUR ---
RN NOTES MEDICATION WERE ADMINISTERED FOR PAIN EFFECTIVE, ALSO PATIENT VOMIT X1 250 ML. PATIENT RESTING IN THE BED. CONTINUED MONITORING.
--- NOTE | 2019-01-04 13:01 | NUR ---
RN NOTES ADMINISTERED DILAUDID 1 MG/ML IV PUSH FOR PAIN RIGHT UPPER ABDOMEN, AND ZOFRAN 4 MG/ML IV PUSH, ALSO ADMINISTERED SCHEDULED MEDICATION, EMPTIED NORY -90 ML, V/S TAKEN BP-167/96, P-92. CONTINUED MONITORING. FAMILY NEXT TO THE BED.
--- NOTE | 2019-01-04 14:00 | NUR ---
RN NOTES PATIENT WALKING IN THE HALLWAY, STABLE, NO DIZZINESS, REFUSED PAIN AFTER PAIN MEDICATION. SAFETY PRECAUTION MAINTAINED ALL THE TIME.
--- NOTE | 2019-01-04 15:47 | NUR ---
RN NOTES ADMINISTERED DILAUDID 1 MG IV PUSH FOR PAIN 04/07 PER PATIENT REQUEST, V/S TAKEN BP 165/94, P-93, CONTINUED MONITORING. GL 18 ML EMPTIED. CONTINUED MONITORING.
[2019-01-04 16:00] VITALS: BP 165/94
[2019-01-04] MEDS: IBUPROFEN 400 MG TABLET PO SCH (16:39)
[2019-01-04] MEDS: ACETAMINOPHEN 325 MG TABLET PO SCH (16:40)
[2019-01-04] MEDS: GABAPENTIN 300 MG CAPSULE PO SCH (16:40)
--- NOTE | 2019-01-04 17:00 | NUR ---
RN NOTES BS-144MG/DL , ALSO ADMINISTERED SCHEDULED MEDICATION. PATIENT VOMIT AGAIN. SEEN SURGEON Dr. LANTIGUA. BECAUSE OF PATIENT VOMIT INCREASED NS 175 ML/HR. CONTINUED ED MONITORING.
[2019-01-04] MEDS: TAMSULOSIN 0.4 MG CAP.SR.24H PO SCH (17:45)
--- NOTE | 2019-01-04 18:30 | NUR ---
RN NOTES PATIENT STABLE EAT DINNER, COVERAGE GIVEN FOR INSULIN, V/S STABLE, PATIENT REFUSED PAIN AT THIS TIME. EMPTIED NORY-45 . FAMILY NEXT TO THE BED. ENDORSED ONCOMING NURSE FOLLOW PLAN OF CARE.
--- NOTE | 2019-01-04 19:30 | NUR ---
RECEIVED PATIENT IN BED AWAKE. AO X 3, ABLE TO MAKE NEEDS KNOWN. NO ACUTE DISTRESS NOTED. MONITORED FOR PAIN. IV SITE PATENT, INTACT; IVF INFUSING ORDERED. NORY DRAIN INTACT; DRAIN SEROSANGUINOUS FLUID. ABDOMINAL INCISION DRESSINGS INTACT. PATIENT ENCOURAGED TO AMBULATE. SAFETY REMINDERS GIVEN. ON LOW BED WITH BILATERAL UPPER SIDE RAILS UP. CALL HANSEN WITHIN EASY REACH. WILL CONTINUE TO MONITOR.
[2019-01-04 20:00] VITALS: BP 150/86
[2019-01-04] MEDS: LEVOFLOXACIN 500 MG /D5W 100ML 500 MG in PREMIX 1 EA IV SCH (20:03)
[2019-01-04] MEDS: IV NS 0.9% 1,000 ML IV PRN (20:09)
[2019-01-04] MEDS: FAMOTIDINE (20 MG) 20 MG TABLET PO SCH (23:03)
[2019-01-05] MEDS: ACETAMINOPHEN 325 MG TABLET PO SCH ×3 (00:10→17:39)
[2019-01-05] MEDS: GABAPENTIN 300 MG CAPSULE PO SCH ×3 (00:10→17:39)
[2019-01-05] MEDS: IBUPROFEN 400 MG TABLET PO SCH ×3 (00:11→17:39)
[2019-01-05] MEDS: ONDANSETRON HCL/PF 4 MG/2 ML VIAL IVP PRN ×4 (00:16→16:27)
[2019-01-05] MEDS: BLOOD SUGAR DIAGNOSTIC 1 EACH STRIP IN SCH ×4 (00:26→18:00)
[2019-01-05] MEDS: IV NS 0.9% 1,000 ML IV PRN ×2 (03:53→12:16)
[2019-01-05] MEDS: METRONIDAZOLE 500MG/ NS 100ML 500 MG in PREMIX 1 EA IV SCH ×3 (04:39→21:51)
[2019-01-05] MEDS: SUCRALFATE 1 G TABLET PO SCH ×3 (05:32→17:37)
--- NOTE | 2019-01-05 06:00 | NUR ---
PATIENT ASLEEP, EASILY AROUSABLE. RESPIRATIONS EVEN. NO SIGNS OF PAIN NOTED. NO SYMPTOMS OF HYPER/HYPOGLYCEMIA. DUE MEDS GIVEN WITH NO ASE NOTED. IVF INFUSING ORDERED. NEEDS ATTENDED. URINE STILL NATALIIA COLORED. NO BM. PATIENT ABLE TO WALK TO THE BATHROOM. SAFETY PRECAUTIONS AND COMFORT MEASURES IN PLACE. WILL GIVE REPORT TO DAY SHIFT FOR CONTINUITY OF CARE.
[2019-01-05 08:00] VITALS: BP 148/88
[2019-01-05] MEDS: PANTOPRAZOLE 40 MG/PACK PACK PO SCH (08:13)
[2019-01-05] MEDS: LISINOPRIL (5MG) 5 MG TABLET PO SCH (08:13)
[2019-01-05] MEDS: ATORVASTATIN 40 MG TABLET PO SCH (08:13)
[2019-01-05] MEDS: NICOTINE PATCH (7MG) 7 MG PATCH.TD24 TD SCH (08:13)
[2019-01-05] MEDS: DOCUSATE SODIUM 100 MG CAPSULE PO SCH ×2 (08:13→17:37)
[2019-01-05] MEDS: METFORMIN 500 MG TABLET PO SCH ×2 (08:13→17:37)
[2019-01-05 08:52] LABS: BASOPHILS # (AUTO) 0.1 /CMM (0.0-0.2); BASOPHILS % (AUTO) 0.5 % (0.0-2.0); EOSINOPHILS % (AUTO) 0.7 % (0.0-6.0); HEMATOCRIT 37 % (39-51); HEMOGLOBIN 12.1 g/dL (13.5-17.5); LYMPHOCYTES # (AUTO) 1.9 /CMM (0.8-4.8); LYMPHOCYTES % (AUTO) 14.9 % (20.0-44.0); MEAN CORPUSCULAR HGB CONC 33 g/dl (31.0-36.0); MEAN CORPUSCULAR VOLUME 94 fL (80-96); MONOCYTES # (AUTO) 0.8 /CMM (0.1-1.30); MONOCYTES % (AUTO) 6.5 % (2.0-12.0); NEUTROPHILS % (AUTO) 77.4 % (43.0-81.0); PLATELET COUNT (AUTO) 484 /CMM (150-450); RED BLOOD CELL COUNT(AUTO) 3.91 MIL/uL (4.5-6.0); WHITE BLOOD COUNT (AUTO) 12.9 K/uL (4.3-11.0)
[2019-01-05 09:08] LABS: CALCIUM, SERUM 7.6 mg/dL (8.5-10.1); CREATININE 0.7 mg/dL (0.6-1.3); MAGNESIUM 1.8 mg/dL (1.8-2.4); POTASSIUM 3.5 mmol/L (3.5-5.1)
[2019-01-05 16:00] VITALS: BP 138/77
--- NOTE | 2019-01-05 16:20 | NUR ---
DIET ADVANCED TO CCHO 2 GM SODIUM PER JESUS ALBERTO N/P.
[2019-01-05] MEDS: TAMSULOSIN 0.4 MG CAP.SR.24H PO SCH (17:36)
--- NOTE | 2019-01-05 18:00 | NUR ---
PATIENT TOLERATED DIET WELL
--- NOTE | 2019-01-05 19:00 | NUR ---
RN MS OPENING NOTES RECEIVED PATIENT IN BED AWAKE ALERT AND ORIENTED X4, RESPIRATIONS EVEN AND UNLABORED WITH EQUAL RISE AND FALL OF CHEST, NORY DRAIN SITE INTACT DRESSING IS C/D/I. OUTPUT AT THIS TIME 50ML NATALIIA/YELLOW COLOR, WITH PROPER SUCTION IN PLACE, ABDOMEN SURGICAL SITE DRESSING IS C/D/I, NOTED WITH ABD DISTENTION, SOFT TO TOUCH PATIENT STATES " HAS GOTTEN ALOT BETTER, SOFTER AND LESS DISTENTION", IV SITE TO RIGHT FA #20 INTACT AND PATENT, NO REDNESS, NO INFILTRATION PRESENT, IVF RUNNING ORDERED, ORIENTED TO STAFF AND CALL LIGHT AND KEPT WITHIN REACH, SAFETY PRECAUTIONS IN PLACE, LOW BED AND LOCKED, PATIENT STATES HE OKAY THIS TIME IN REGARDS TO PAIN, DOES NOT WANT PAIN MEDICATION AT THIS TIME, STATES "ITS TOLERABLE", NO FACIAL GRIMACING PRESENT, NO MOANS, PATIENT HAD STEADY GAIT, DISCUSSED PLAN OF CARE, ALL NEEDS ATTENDED AT THIS TIME, WILL CONTINUE TO MONITOR AND ATTEND TO NEEDS.
--- NOTE | 2019-01-05 19:40 | NUR ---
PATIENT IN BED AWAKE. NO ACUTE DISTRESS NOTED. IV SITE PATENT, INTACT; IVF INFUSING ORDERED. NORY DRAIN INTACT; DRAIN SEROSANGUINOUS FLUID 180ML. ABDOMINAL INCISION DRESSINGS INTACT. PATIENT ENCOURAGED TO AMBULATE. SAFETY REMINDERS GIVEN. ON LOW BED WITH BILATERAL UPPER SIDE RAILS UP. CALL HANSEN WITHIN EASY REACH.FAMILY MEMBER AT BEDSIDE.PATIENT DENIES NAUSEA AT THIS TIME.WILL ENDORSE TO NEXT SHIFT FOR ALEJANDRO.
[2019-01-05 20:00] VITALS: BP 131/79
[2019-01-05] MEDS: LEVOFLOXACIN 500 MG /D5W 100ML 500 MG in PREMIX 1 EA IV SCH (20:01)
[2019-01-05] MEDS: FAMOTIDINE (20 MG) 20 MG TABLET PO SCH (21:52)
[2019-01-06] MEDS: IBUPROFEN 400 MG TABLET PO SCH ×3 (00:18→17:07)
[2019-01-06] MEDS: SUCRALFATE 1 G TABLET PO SCH ×5 (00:18→23:38)
[2019-01-06] MEDS: GABAPENTIN 300 MG CAPSULE PO SCH ×3 (00:18→17:07)
[2019-01-06] MEDS: ACETAMINOPHEN 325 MG TABLET PO SCH ×3 (00:18→17:07)
[2019-01-06] MEDS: BLOOD SUGAR DIAGNOSTIC 1 EACH STRIP IN SCH ×5 (00:47→23:39)
[2019-01-06] MEDS: INSULIN REGULAR, HUMAN 100 UNIT/ML 3 ML VIAL SQ PRN ×2 (00:48→05:15)
[2019-01-06] MEDS: IV NS 0.9% 1,000 ML IV PRN (04:15)
[2019-01-06] MEDS: METRONIDAZOLE 500MG/ NS 100ML 500 MG in PREMIX 1 EA IV SCH (04:16)
--- NOTE | 2019-01-06 06:39 | NUR ---
RN MS CLOSING NOTES PATIENT IN BED AWAKE ALERT AND ORIENTED X4, RESPIRATIONS EVEN AND UNLABORED WITH EQUAL RISE AND FALL OF CHEST, NORY DRAIN SITE INTACT DRESSING IS C/D/I. OUTPUT AT THIS TIME 105ML NATALIIA/YELLOW COLOR, WITH PROPER SUCTION IN PLACE, ABDOMEN SURGICAL SITE DRESSING IS C/D/I, NOTED WITH ABD DISTENTION, SOFT TO TOUCH, IV SITE TO RIGHT FA #20 INTACT AND PATENT, NO REDNESS, NO INFILTRATION PRESENT, IVF RUNNING ORDERED, CALL LIGHT KEPT WITHIN REACH, SAFETY PRECAUTIONS IN PLACE, LOW BED AND LOCKED, PATIENT STATES HE OKAY THIS TIME IN REGARDS TO PAIN, NO FACIAL GRIMACING PRESENT, NO MOANS, PATIENT HAD STEADY GAIT,, ALL NEEDS ATTENDED AT THIS TIME, WILL CONTINUE TO MONITOR AND ATTEND TO NEEDS AND ENDORSE TO NEXT SHIFT.
[2019-01-06 08:00] VITALS: BP 147/81
[2019-01-06] MEDS: METFORMIN 500 MG TABLET PO SCH ×2 (09:00→17:07)
[2019-01-06] MEDS: PANTOPRAZOLE 40 MG/PACK PACK PO SCH (09:17)
[2019-01-06] MEDS: DOCUSATE SODIUM 100 MG CAPSULE PO SCH ×2 (09:17→17:07)
[2019-01-06] MEDS: LISINOPRIL (5MG) 5 MG TABLET PO SCH (09:18)
[2019-01-06] MEDS: NICOTINE PATCH (7MG) 7 MG PATCH.TD24 TD SCH (09:19)
[2019-01-06] MEDS: ATORVASTATIN 40 MG TABLET PO SCH (09:23)
[2019-01-06] MEDS ORDERED: BACI/NEOM/POLY B OINT PKT 1 UDPKT PACKET TP SCH (10:30)
[2019-01-06] MEDS: NEOMY SULF/BACITRAC ZN/POLY 15 GM TUBE TP SCH ×2 (11:00→17:08)
--- NOTE | 2019-01-06 11:10 | NUR ---
NORY DRAIN REMOVED BY DR. LANTIGUA . DRESSING APPLIED.
[2019-01-06] MEDS: METRONIDAZOLE 500 MG TABLET PO SCH ×2 (12:49→21:32)
[2019-01-06 16:00] VITALS: BP 141/76
[2019-01-06] MEDS: TAMSULOSIN 0.4 MG CAP.SR.24H PO SCH (17:07)
--- NOTE | 2019-01-06 19:30 | NUR ---
MS RN NOTES RECEIVED ON BED A/O X4,SPEAK SWISS,FAMILY MEMBERS AT BEDSIDE.S/P OPEN CHOLECYSTECTOMY LAST Saturday01/02/[address] LANTIGUA.DRESSING INTACT WITH SCATY DISCHARGES NOTED.ABLE TO USE THE BATHROOM.SALINE LOCK RIGHT WRIST INTACT AND PATENT.NO PAIN AT THE MOMENT.CALL LIGHT IN REACH,NEEDS ANTICIPATED.
--- NOTE | 2019-01-06 19:33 | NUR ---
PATIENT STABLE, EAT DINNER, V/S STABLE, PATIENT DENIES PAIN AT THIS TIME. DRESSING CHANGED. FAMILY AT BED SIDE. ENDORSED ONCOMING NURSE FOLLOW PLAN OF CARE.
[2019-01-06 19:43] VITALS: BP 147/71
[2019-01-06 20:00] VITALS: BP 147/77
[2019-01-06] MEDS: LEVOFLOXACIN 500 MG /D5W 100ML 500 MG in PREMIX 1 EA IV SCH (20:24)
--- NOTE | 2019-01-06 20:24 | NUR ---
MS RN NOTES DUE IV LEVAQUIN 500MG HUNG,INFUSING VIA IV PUMP,
[2019-01-06] MEDS: FAMOTIDINE (20 MG) 20 MG TABLET PO SCH (21:32)
--- NOTE | 2019-01-06 21:32 | NUR ---
MS RN NOTES OPEN PHYXIS TWICE,ACCIDENTALLY TOOK ONLY ONE PEPCID 20MG, NEED 40MG ORDERED.
--- NOTE | 2019-01-07 | NUR ---
MS RN NOTES ACCU-CHECK BLOOD SUGAR CHECK 103,NO INSULIN COVERAGE.
--- NOTE | 2019-01-07 00:32 | NUR ---
MS RN NOTES SLEEPING AT THIS TIME,NO COMPLAINTS OF PAIN.REPORT GIVEN TO RICHARD FOR CONTINUITY OF CARE.
--- NOTE | 2019-01-07 00:36 | NUR ---
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 WILL CONT TO MTR.
[2019-01-07] MEDS: IBUPROFEN 400 MG TABLET PO SCH ×2 (01:15→08:41)
[2019-01-07] MEDS: ACETAMINOPHEN 325 MG TABLET PO SCH ×2 (01:15→08:41)
[2019-01-07] MEDS: GABAPENTIN 300 MG CAPSULE PO SCH ×2 (01:15→08:41)
[2019-01-07] MEDS: IV NS 0.9% 1,000 ML IV PRN (02:33)
[2019-01-07] MEDS: METRONIDAZOLE 500 MG TABLET PO SCH ×2 (05:04→12:01)
[2019-01-07] MEDS: SUCRALFATE 1 G TABLET PO SCH ×2 (05:04→12:01)
[2019-01-07] MEDS: INSULIN REGULAR, HUMAN 100 UNIT/ML 3 ML VIAL SQ PRN ×2 (05:11→11:59)
[2019-01-07] MEDS: BLOOD SUGAR DIAGNOSTIC 1 EACH STRIP IN SCH ×2 (05:11→11:59)
--- NOTE | 2019-01-07 06:13 | NUR ---
MS RN ASLEEP AND EASILY AWAKEN, NO SIGNIFICANT CHANGES THROUGHOUT THE SHIFT. RESPIRATION EVEN AND UNLABORED. KEPT CLEAN AND DRY AND COMFORTABLE. NEEDS ATTENDED AND ANTICIPATED, NURSING CARE RENDERED, NO C/O PAIN AT THIS TIME. SAFETY MEASURES AT ALL TIMES. ENDORSE TO THE NEXT SHIFT.
[2019-01-07 08:00] VITALS: BP 150/90
--- NOTE | 2019-01-07 08:00 | NUR ---
MS RN NOTES PATIENT IN BED ALERT, ORIENTED X3. IN BED. DR. HARRINGTON AT BEDSIDE ASSESSING PATIENT. ORDERS RECEIVED TO DISCHARGE AFTER CBC RETURNEES AND WBC IS WNL. PATIENT VERBALIZED UNDERSTATING OF DISCHARGE INSTRUCTIONS FROM MD. INSTRUCTED TO TAKE ATB. TABLETS PRESCRIBED. PATIENTS BED IN LOW LOCKED POSITION. CALL LIGHT WITHIN REACH. PERIPHERAL IV INTACT PATENT. WILL CONTINUE TO MONITOR. WAITING FOR CBC RESULTS.
[2019-01-07] MEDS: ATORVASTATIN 40 MG TABLET PO SCH (08:40)
[2019-01-07] MEDS: DOCUSATE SODIUM 100 MG CAPSULE PO SCH (08:40)
[2019-01-07] MEDS: NICOTINE PATCH (7MG) 7 MG PATCH.TD24 TD SCH (08:40)
[2019-01-07 08:41] VITALS: BP 150/90
[2019-01-07] MEDS: LISINOPRIL (5MG) 5 MG TABLET PO SCH (08:41)
[2019-01-07] MEDS: PANTOPRAZOLE 40 MG/PACK PACK PO SCH (08:41)
[2019-01-07] MEDS: METFORMIN 500 MG TABLET PO SCH (08:41)
[2019-01-07 09:19] LABS: BASOPHILS % (AUTO) 0.3 % (0.0-2.0); EOSINOPHILS % (AUTO) 3.5 % (0.0-6.0); HEMATOCRIT 38 % (39-51); HEMOGLOBIN 12.8 g/dL (13.5-17.5); LYMPHOCYTES # (AUTO) 2.1 /CMM (0.8-4.8); LYMPHOCYTES % (AUTO) 21.3 % (20.0-44.0); MEAN CORPUSCULAR HGB CONC 34 g/dl (31.0-36.0); MEAN CORPUSCULAR VOLUME 92 fL (80-96); MONOCYTES # (AUTO) 0.7 /CMM (0.1-1.30); MONOCYTES % (AUTO) 7.4 % (2.0-12.0); NEUTROPHILS # (AUTO) 6.5 /CMM (1.8-8.9); NEUTROPHILS % (AUTO) 67.5 % (43.0-81.0); PLATELET COUNT (AUTO) 579 /CMM (150-450); RED BLOOD CELL COUNT(AUTO) 4.12 MIL/uL (4.5-6.0); WHITE BLOOD COUNT (AUTO) 9.7 K/uL (4.3-11.0)
[2019-01-07] MEDS: NEOMY SULF/BACITRAC ZN/POLY 15 GM TUBE TP SCH (11:59)
--- NOTE | 2019-01-07 13:54 | NUR ---
MS RN NOTES PATIENT DISCHARGED HOME WITH DAUGHTER. PATIENT ALERT, ORIENTED X4 DENIES ANY PAIN. IS STABLE CONDITION. DISCHARGE INSTRUCTIONS PROVIDED, VERBALIZED UNDERSTANDING. DISCHARGE PROTOCOL FOLLOWED. DRESSING CHANGED OF NORY SITE. MINIMAL DRAINAGE NOTED. DISCHARGE TEACHING PROVIDED TO PATIENTS DAUGHTER ALSO. ALL BELONGINGS ACCOUNTED FOR. BELONGING LIST SIGNED. AWARE OF ALL ABNORMAL LABS. DR BORRERO INFORMATION PROVIDED FOR FOLLOW UP APPOINTMENT. PERIPHERAL IV REMOVED WITH MINIMAL BLEEDING. ID BAND REMOVED. PATIENT ESCORTED TO CAR.
[2019-01-07] MEDS ORDERED: LEVOFLOXACIN (500MG) 500 MG TABLET PO SCH (18:00)
== END 2019-01-07 13:55 | disposition home or self-care (01) | DRG 710 ==
LOC: ER 17:17 → MED 20:32
PROVIDERS: ADMIT Family Medicine; ATTEND Internal Medicine
PROC: 0FJ44ZZ Inspection of Gallbladder, Percutaneous Endoscopic Approach (ICD-10-PCS; principal; 2019-01-02)
PROC: 0FT40ZZ Resection of Gallbladder, Open Approach (ICD-10-PCS; principal; 2019-01-02)
DX: A41.9 Sepsis, unspecified organism (principal); E87.2 Acidosis; K80.00 Calculus of gallbladder with acute cholecystitis without obstruction; E11.65 Type 2 diabetes mellitus with hyperglycemia; E44.1 Mild protein-calorie malnutrition; E87.1 Hypo-osmolality and hyponatremia; E78.5 Hyperlipidemia, unspecified; N40.0 Benign prostatic hyperplasia without lower urinary tract symptoms; K82.8 Other specified diseases of gallbladder; I10 Essential (primary) hypertension; K82.A1 Gangrene of gallbladder in cholecystitis; E83.39 Other disorders of phosphorus metabolism; E86.1 Hypovolemia; K59.00 Constipation, unspecified; Z87.891 Personal history of nicotine dependence; Z79.84 Long term (current) use of oral hypoglycemic drugs
CPT/HCPCS: 36415; 71045-TC; 76705-TC; 78226; 80048-TC; 80053-TC; 80061-TC; 80076-TC; 82962-TC; 83605-TC; 83690-TC; 83735-TC; 84100-TC; 85025-TC; 85730-TC; 86850-TC; 87040-TC; 87081-TC; 88304-TC; A4216; A6402; A6403; A9537; G0378; J1100; J1170; J1815; J1885; J1956; J2250; J2270; J2405; J3010; J3490; J7030; J7042

== ENCOUNTER 2019-01-13 19:17 | Emergency (ER) | payer OTHER ==
[~2019-01-13] VITALS: Ht 167.6 cm; Wt 83.5 kg
[~2019-01-13 19:17] MED LIST changes: +TAMS-12 PO
[2019-01-13 19:49] VITALS: BP 119/74
== END 2019-01-13 21:29 | disposition home or self-care (01) ==
LOC: ER 19:19
DX: Z48.01 Encounter for change or removal of surgical wound dressing (principal); I10 Essential (primary) hypertension; E11.9 Type 2 diabetes mellitus without complications; N40.0 Benign prostatic hyperplasia without lower urinary tract symptoms; Z88.0 Allergy status to penicillin; Z90.49 Acquired absence of other specified parts of digestive tract; Z60.2 Problems related to living alone
CPT/HCPCS: 99282; A6253